=== PATIENT | female | born 1965 | race Caucasian/White ===

== ENCOUNTER 2020-04-26 10:57 | Emergency (ER) | payer OTHER ==
[~2020-04-26] VITALS: Ht 175.3 cm; Wt 91.5 kg
[~2020-04-26 10:57] MED LIST: CEFD300C37 PO; GABA300C PO; IBUP-1223 PO; LACT1CAP35 PO; METR250T PO; TEMA30CA PO; TRAM50TA2 PO; TRAZ-175 PO; ZOLP10TA PO
[2020-04-26] MEDS ORDERED: MORPHINE SULFATE 4 MG/ML, 1ML IVPush PRN (11:30)
[2020-04-26 11:51] LABS: MICROSCOPIC NOT IND
[2020-04-26 11:53] LABS: BASOPHILS % (AUTO) 1 % (0-1); EOSINOPHILS % (AUTO) 2 % (1-7); LYMPHOCYTES % (AUTO) 28 % (22-44); MEAN CORPUSCULAR HEMOGLOBIN 28.6 pg (27.0-34.8); MEAN CORPUSCULAR HGB CONC 33.5 g/dL (32.4-35.8); MONOCYTES % (AUTO) 7 % (2-9); NEUTROPHILS % (AUTO) 62 % (42-75); PLATELET COUNT 355 x10^3/uL (130-400); RED BLOOD COUNT 4.65 x10^6/uL (3.82-5.3); RED CELL DISTRIBUTION WIDTH 13.4 % (9.6-15.2)
[2020-04-26 11:57] LABS: MD NO
[2020-04-26] MEDS ORDERED: SODIUM CHLORIDE 0.9% 1,000ML IVBOLUS ONE (12:00)
[2020-04-26] MEDS ORDERED: ONDANSETRON 2MG/ML, 2ML IVPush ONE (12:00)
[2020-04-26 12:04] LABS: ALANINE AMINOTRANSFERASE 30 U/L (12-78); ALBUMIN 3.8 g/dL (3.4-5.0); ANION GAP 7 mmol/L (5-15); CALCIUM 8.9 mg/dL (8.5-10.1); CHLORIDE 105 mmol/L (98-107); CREATININE 0.78 mg/dL (0.55-1.02)
--- NOTE | 2020-04-26 12:05 | NUR ---
PT STATES CHRONIC ABDOMINAL PAIN FOR 1 MONTH. PT THOUGHT IT WAS HER DIVERTICULITIS, DIET CHANGED. SYMPTOMS UNRESOLVED. SENT FROM PCP FOR CT FOR ABDOMEN. IV PLACED, IVF AND MEDICATED FOR PAIN
[2020-04-26 12:06] LABS: ALKALINE PHOSPHATASE 80 U/L (45-117); BILIRUBIN,TOTAL 0.5 mg/dL (0.2-1.0); TOTAL PROTEIN 7.7 g/dL (6.4-8.2)
--- NOTE | 2020-04-26 12:29 | NUR ---
PT AMBULATED TO BATHROOM W STEADY GAIT.
--- NOTE | 2020-04-26 13:04 | NUR ---
PT BACK FROM CT. WAITING FOR RESULTS.
[2020-04-26] MEDS ORDERED: OMNIPAQUE 350 MG/ML, 100ML BOTTLE ONE (13:30)
--- NOTE | 2020-04-26 14:01 | NUR ---
BREAK RN: PT RESTING IN ROOM. NO ACUTE DISTRESS NOTED. CALL LIGHT IN PLACE. WILL COTNINUE TO MONITOR WHILE PRIMARY RN IS ON BREAK.
[2020-04-26] MEDS ORDERED: DICYCLOMINE 10 MG/ML, 2ML IM ONE (14:30)
--- NOTE | 2020-04-26 14:30 | NUR ---
SEEN BY MD FLOOD
[2020-04-26] MEDS ORDERED: DICYCLOMINE 10 MG/ML, 2ML ONE (14:33)
[2020-04-26 14:55] VITALS: BP 146/71
--- NOTE | 2020-04-26 14:57 | NUR ---
Patient/Caregiver given discharge instructions and they have confirmed that they understand the instructions. Patient ambulatory with steady gait.
== END 2020-04-26 14:58 | disposition home or self-care (01) ==
LOC: ED 13:54
DX: R10.11 Right upper quadrant pain (principal); R11.2 Nausea with vomiting, unspecified
CPT/HCPCS: 36415; 74177; 80053; 81003; 83690; 85025; 96361; 96372; 96374; 96375; 99285; J0500; J2270; J2405; J7030; Q9967